=== PATIENT | male | born 1975 | race Caucasian/White ===

== ENCOUNTER 2017-10-27 08:40 | Inpatient (IN) | payer OTHER ==
[2017-10-27] MEDS: fentaNYL PF VIAL 100 MCG/2 ML VIAL IV ×2 (09:15)
[2017-10-27 09:18] LABS: BASO # 0.1 x10^3/uL (0.0-0.2); BASO % 1 % (0-3); EOS % 0 % (0-3); LYMPH # 0.3 x10^3/uL (1.0-4.8); LYMPH % 2 % (24-48); MEAN CORPUSCULAR HEMOGLOBIN 31 pg (25-35); MEAN CORPUSCULAR HGB CONC 34 g/dL (31-37); MEAN CORPUSCULAR VOLUME 90 fL (79-100); MONO # 1.2 x10^3/uL (0.0-1.1); MONO % 6 % (0-9); NEUT # 19.5 x10^3uL (1.8-7.7); NEUT % 92 % (31-73); PLATELET COUNT 410 x10^3/uL (140-400); RED BLOOD COUNT 4.24 x10^6/uL (4.30-5.70); RED CELL DISTRIBUTION WIDTH 13.3 % (11.5-14.5); WHITE BLOOD COUNT 21.2 x10^3/uL (4.0-11.0)
[2017-10-27] MEDS: IV NORMAL SALINE 1000ML BAG 1,000 ML IV ×8 (09:18→14:20)
[2017-10-27] MEDS: ONDANSETRON PF 4 MG/2 ML VIAL. IV ×2 (09:19)
[2017-10-27] MEDS: FAMOTIDINE 20 MG/2 ML VIAL IVP ×4 (09:19→22:20)
[2017-10-27] MEDS: DICYCLOMINE HCL 10 MG CAPSULE PO ×2 (09:19)
[2017-10-27 09:20] LABS: ADD MAN DIFF? YES
[2017-10-27 09:25] LABS: INFLUENZA A PATIENT NEGATIVE (NEGATIVE)
[2017-10-27 09:26] LABS: ANION GAP 7 (6-14); BLOOD UREA NITROGEN 31 mg/dL (8-26); BUN/CREATININE RATIO 17 (6-20); CALCIUM 8.6 mg/dL (8.5-10.1); CARBON DIOXIDE 27 mmol/L (21-32); CHLORIDE 88 mmol/L (98-107); CREATININE 1.8 mg/dL (0.7-1.3); GFR 41.8; GLUCOSE 138 mg/dL (70-99); INFLUENZA B PATIENT NEGATIVE (NEGATIVE); OBC FLU VALID; POTASSIUM 3.4 mmol/L (3.5-5.1); SODIUM 122 mmol/L (136-145)
[2017-10-27 09:32] LABS: ALBUMIN 2.5 g/dL (3.4-5.0); ALBUMIN/GLOBULIN RATIO 0.4 (1.0-1.7); ALK PHOS 229 U/L (46-116); ALT (SGPT) 263 U/L (16-63); AST (SGOT) 375 U/L (15-37); LIPASE 196 U/L (73-393); TOTAL BILIRUBIN 2.3 mg/dL (0.2-1.0); TOTAL PROTEIN 8.1 g/dL (6.4-8.2)
[2017-10-27 10:14] LABS: % BANDS 4 % (0-9); % LYMPHS 2 % (24-48); % MONOS 2 % (0-10); % SEGS 92 % (35-66); PLT ESTIMATE ADEQUATE (ADEQUATE)
[2017-10-27 10:38] LABS: BILIRUBIN,URINE MODERATE (NEG); CLARITY,URINE CLOUDY; COLOR,URINE AMBER; GLUCOSE,URINE NEGATIVE (NEG); NITRITE,URINE NEGATIVE (NEG); PH,URINE 5.5; PROTEIN,URINE 30 mg/dL (NEG-TRACE)
[2017-10-27] MEDS: IOHEXOL 300 MG/ML 100ML VIAL. IV ×2 (10:50)
[2017-10-27 10:54] LABS: RBC,URINE 0 /HPF (0-2)
[2017-10-27 10:55] LABS: BACTERIA,URINE MOD /HPF (0-FEW); SQUAMOUS EPITHELIAL CELL,UR FEW /LPF; WBC,URINE 20-40 /HPF (0-4)
[2017-10-27 10:56] LABS: HYALINE CASTS, URINE OCCASIONAL /HPF
[2017-10-27] MEDS ORDERED: CONTRAST GIVEN MC ×2 (11:00)
[2017-10-27 11:59] LABS: THYROID STIM HORMONE (TSH) 1.917 uIU/mL (0.358-3.74)
[2017-10-27] MEDS ORDERED: ONDANSETRON PF 4 MG/2 ML VIAL. IV ×2 (13:45)
[2017-10-27] MEDS ORDERED: MORPHINE SULFATE 4 MG/ML DISP.SYRIN. IV ×2 (13:45)
[2017-10-27] MEDS: CEFEPIME HCL 2 GM in IV NORMAL SALINE 100ML 100 ML IV ×2 (14:45→22:19)
[2017-10-27] MEDS ORDERED: ONDANSETRON ODT 4 MG TAB.RAPDIS. PO ×2 (17:00)
[2017-10-27 18:41] LABS: ANION GAP 7 (6-14); BLOOD UREA NITROGEN 27 mg/dL (8-26); CALCIUM 8.1 mg/dL (8.5-10.1); CARBON DIOXIDE 27 mmol/L (21-32); CHLORIDE 96 mmol/L (98-107); CREATININE 1.7 mg/dL (0.7-1.3); GFR 44.6; GLUCOSE 157 mg/dL (70-99); POTASSIUM 3.4 mmol/L (3.5-5.1); SODIUM 130 mmol/L (136-145)
[2017-10-27 18:41] LABS: GAMMA GLUTAMYL TRANSPEPTIDASE 135 U/L (10-85)
[2017-10-27] MEDS ORDERED: INFLUENZA VAX SCREEN BY RX. MC ×2 (19:00)
[2017-10-27] MEDS ORDERED: SALIVA STIMULANT AGENT 44ML SPRAY BOTTLE. PO ×2 (19:30)
[2017-10-27] MEDS: FLU VACC QS2017-18 (36MOS+)/PF 0.5 ML SYRINGE. VAX IM ×2 (22:22)
[2017-10-28 04:56] LABS: ADD MAN DIFF? NO
[2017-10-28 05:04] LABS: BASO # 0.1 x10^3/uL (0.0-0.2); BASO % 1 % (0-3); EOS % 0 % (0-3); HEMATOCRIT 33.3 % (39.0-53.0); HEMOGLOBIN 11.2 g/dL (13.0-17.5); LYMPH # 0.6 x10^3/uL (1.0-4.8); LYMPH % 3 % (24-48); MEAN CORPUSCULAR HEMOGLOBIN 31 pg (25-35); MEAN CORPUSCULAR HGB CONC 34 g/dL (31-37); MEAN CORPUSCULAR VOLUME 91 fL (79-100); MONO # 1.7 x10^3/uL (0.0-1.1); MONO % 9 % (0-9); NEUT # 16.6 x10^3uL (1.8-7.7); NEUT % 87 % (31-73); PLATELET COUNT 351 x10^3/uL (140-400); RED BLOOD COUNT 3.66 x10^6/uL (4.30-5.70); RED CELL DISTRIBUTION WIDTH 13.5 % (11.5-14.5)
[2017-10-28 05:36] LABS: INR 1.5 (0.8-1.1); PROTHROMBIN TIME PATIENT 17.5 SEC (11.7-14.0)
[2017-10-28] MEDS: CEFEPIME HCL 2 GM in IV NORMAL SALINE 100ML 100 ML IV ×3 (06:25→21:21)
[2017-10-28 07:28] LABS: ALBUMIN 1.9 g/dL (3.4-5.0); ALBUMIN/GLOBULIN RATIO 0.4 (1.0-1.7); ALK PHOS 183 U/L (46-116); ALT (SGPT) 189 U/L (16-63); ANION GAP 8 (6-14); AST (SGOT) 220 U/L (15-37); BLOOD UREA NITROGEN 20 mg/dL (8-26); BUN/CREATININE RATIO 17 (6-20); CALCIUM 7.9 mg/dL (8.5-10.1); CARBON DIOXIDE 25 mmol/L (21-32); CHLORIDE 100 mmol/L (98-107); CREATININE 1.2 mg/dL (0.7-1.3); GFR 66.7; GLUCOSE 95 mg/dL (70-99); POTASSIUM 3.5 mmol/L (3.5-5.1); SODIUM 133 mmol/L (136-145); TOTAL BILIRUBIN 1.2 mg/dL (0.2-1.0); TOTAL PROTEIN 6.5 g/dL (6.4-8.2)
[2017-10-28] MEDS: FAMOTIDINE 20 MG/2 ML VIAL IVP ×4 (09:47→20:43)
[2017-10-28] MEDS: POTASSIUM CHLORIDE 20 MEQ TABLET.ER. PO ×2 (09:47)
[2017-10-28 12:15] LABS: HCV ANTIBODY 0.1 s/co ratio (0.0-0.9); HEP A IGM ABDY Negative (Negative); HEP B SURFACE AG Negative (Negative)
[2017-10-28] MEDS ORDERED: LOPERAMIDE 2 MG CAPSULE PO ×2 (13:00)
[2017-10-28] MEDS: POTASSIUM CL 40MEQ D5-0.45NACL 1,000 ML IV ×4 (13:00→20:44)
[2017-10-28] MEDS: IV NORMAL SALINE 1000ML BAG 1,000 ML IV ×2 (13:38)
[2017-10-28 15:59] LABS: SEDIMENTATION RATE 40 (0-15)
[2017-10-28] MEDS: MESALAMINE 1.2 GM TABLET.DR PO ×2 (20:43)
[2017-10-28 23:11] LABS: C DIFF BY PCR Negative (Negative)
[2017-10-29 04:34] LABS: ADD MAN DIFF? NO
[2017-10-29 04:41] LABS: BASO % 0 % (0-3); EOS # 0.1 x10^3/uL (0.0-0.7); EOS % 1 % (0-3); HEMATOCRIT 31.2 % (39.0-53.0); HEMOGLOBIN 10.5 g/dL (13.0-17.5); LYMPH # 0.8 x10^3/uL (1.0-4.8); LYMPH % 4 % (24-48); MEAN CORPUSCULAR HEMOGLOBIN 31 pg (25-35); MEAN CORPUSCULAR HGB CONC 34 g/dL (31-37); MEAN CORPUSCULAR VOLUME 91 fL (79-100); MONO # 1.6 x10^3/uL (0.0-1.1); MONO % 9 % (0-9); NEUT % 86 % (31-73); PLATELET COUNT 367 x10^3/uL (140-400); RED BLOOD COUNT 3.44 x10^6/uL (4.30-5.70); RED CELL DISTRIBUTION WIDTH 13.6 % (11.5-14.5); WHITE BLOOD COUNT 17.5 x10^3/uL (4.0-11.0)
[2017-10-29 05:05] LABS: ANION GAP 7 (6-14); BLOOD UREA NITROGEN 12 mg/dL (8-26); CALCIUM 7.6 mg/dL (8.5-10.1); CARBON DIOXIDE 23 mmol/L (21-32); CHLORIDE 98 mmol/L (98-107); CREATININE 1.2 mg/dL (0.7-1.3); GFR 66.7; GLUCOSE 345 mg/dL (70-99); SODIUM 128 mmol/L (136-145)
[2017-10-29 05:07] LABS: POTASSIUM 6.1 mmol/L (3.5-5.1)
[2017-10-29] MEDS ORDERED: DEXTROSE 50% 25 GM / 50ML DISP.SYRIN. IV ×2 (06:00)
[2017-10-29] MEDS: DEXTROSE 5% IV (06:31)
[2017-10-29] MEDS: CALCIUM GLUCONATE IV (06:31)
[2017-10-29] MEDS: CEFEPIME HCL 2 GM in IV NORMAL SALINE 100ML 100 ML IV ×3 (06:31→21:44)
[2017-10-29] MEDS: INSULIN ASPART 300 UNITS/3 ML INSULN.PEN SQ ×2 (07:54)
[2017-10-29 07:56] LABS: POC GLUCOSE 113 mg/dL (70-99)
[2017-10-29] MEDS: FAMOTIDINE 20 MG/2 ML VIAL IVP ×2 (10:03)
[2017-10-29] MEDS: MESALAMINE 1.2 GM TABLET.DR PO ×2 (10:03)
[2017-10-29] MEDS: POTASSIUM CHLORIDE 20 MEQ TABLET.ER. PO ×2 (10:03)
[2017-10-29 11:15] LABS: POTASSIUM 3.5 mmol/L (3.5-5.1)
[2017-10-29 11:20] LABS: CEA 0.2 ng/mL (0.0-4.7)
[2017-10-29 11:20] LABS: CA 19-9 2 U/mL (0-35)
[2017-10-29 14:27] LABS: URINE OSMOLALITY 290 mOsmol/kg (.)
[2017-10-29] MEDS: IV NORMAL SALINE 1000ML BAG 1,000 ML IV ×4 (17:26→21:44)
[2017-10-30 06:07] LABS: ANION GAP 10 (6-14); BLOOD UREA NITROGEN 10 mg/dL (8-26); CALCIUM 8.6 mg/dL (8.5-10.1); CARBON DIOXIDE 25 mmol/L (21-32); CHLORIDE 100 mmol/L (98-107); CREATININE 1.1 mg/dL (0.7-1.3); GFR 73.8; GLUCOSE 92 mg/dL (70-99); POTASSIUM 3.7 mmol/L (3.5-5.1); SODIUM 135 mmol/L (136-145)
[2017-10-30] MEDS: CEFEPIME HCL 2 GM in IV NORMAL SALINE 100ML 100 ML IV ×3 (06:09→23:42)
[2017-10-30] MEDS: IV NORMAL SALINE 1000ML BAG 1,000 ML IV ×4 (06:10→18:03)
[2017-10-30] MEDS ORDERED: ONDANSETRON PF 4 MG/2 ML VIAL. IV ×2 (07:00)
[2017-10-30] MEDS ORDERED: PROCHLORPERAZINE 10 MG/2 ML VIAL. IV ×2 (07:00)
[2017-10-30] MEDS ORDERED: LIDOCAINE 1% PF 2 ML VIAL. ID ×2 (07:00)
[2017-10-30] MEDS ORDERED: MORPHINE SULFATE 2 MG/ML DISP.SYRIN. IV ×2 (07:00)
[2017-10-30] MEDS ORDERED: fentaNYL PF VIAL 100 MCG/2 ML VIAL IV ×4 (07:00)
[2017-10-30] MEDS: MESALAMINE 1.2 GM TABLET.DR PO ×2 (08:43)
[2017-10-30] MEDS ORDERED: IOHEXOL 300 MG/ML 100ML VIAL. ×2 (09:06)
[2017-10-30] MEDS ORDERED: LIDOCAINE 2% 100 MG/5 ML SYRINGE. ×2 (12:00)
[2017-10-30] MEDS ORDERED: ROCURONIUM 50 MG/5 ML VIAL. ×2 (12:00)
[2017-10-30] MEDS ORDERED: GLYCOPYRROLATE 1 MG/5 ML VIAL. ×2 (12:00)
[2017-10-30] MEDS ORDERED: PROPOFOL 10 MG/ML (20ML) VIAL. IV ×2 (12:00)
[2017-10-30] MEDS ORDERED: NEOSTIGMINE METHYLSULFATE 5 MG/5 ML SYRINGE. ×2 (12:00)
[2017-10-30] MEDS: IV RINGERS,LACTATED 1000ML 1,000 ML IV ×2 (12:46)
[2017-10-30] MEDS: IOHEXOL 350 MG/ML 50 ML VIAL. IV ×2 (13:30)
[2017-10-30] MEDS: URSODIOL 300 MG CAPSULE. PO ×4 (18:02→22:37)
[2017-10-30] MEDS: LACTOBACILLUS RHAMNOSUS GG 1 CAPSULE. PO ×2 (22:37)
[2017-10-30] MEDS: MESALAMINE 1,000 MG SUPP.RECT PR ×2 (23:41)
[2017-10-31] MEDS: IV NORMAL SALINE 1000ML BAG 1,000 ML IV ×4 (04:03→14:18)
[2017-10-31] MEDS: CEFEPIME HCL 2 GM in IV NORMAL SALINE 100ML 100 ML IV ×3 (05:22→21:25)
[2017-10-31 08:25] LABS: CRYPTOSPORIDIUM EIA Negative (Negative)
[2017-10-31 08:35] LABS: % SAT IRON 29 % (15-34); IRON,SERUM 47 ug/dL (65-175)
[2017-10-31] MEDS: LACTOBACILLUS RHAMNOSUS GG 1 CAPSULE. PO ×4 (09:16→21:25)
[2017-10-31] MEDS: MESALAMINE 1.2 GM TABLET.DR PO ×2 (09:16)
[2017-10-31] MEDS: URSODIOL 300 MG CAPSULE. PO ×8 (09:16→21:25)
[2017-10-31] MEDS: MESALAMINE 1,000 MG SUPP.RECT PR ×2 (21:00)
[2017-11-01] MEDS: IV NORMAL SALINE 1000ML BAG 1,000 ML IV ×4 (04:55→08:15)
[2017-11-01 04:58] LABS: BASO # 0.1 x10^3/uL (0.0-0.2); BASO % 0 % (0-3); EOS # 0.2 x10^3/uL (0.0-0.7); EOS % 2 % (0-3); HEMATOCRIT 35.6 % (39.0-53.0); LYMPH # 1.3 x10^3/uL (1.0-4.8); LYMPH % 8 % (24-48); MEAN CORPUSCULAR HEMOGLOBIN 31 pg (25-35); MEAN CORPUSCULAR HGB CONC 34 g/dL (31-37); MEAN CORPUSCULAR VOLUME 91 fL (79-100); MONO # 1.4 x10^3/uL (0.0-1.1); MONO % 8 % (0-9); NEUT # 13.2 x10^3uL (1.8-7.7); NEUT % 82 % (31-73); PLATELET COUNT 582 x10^3/uL (140-400); RED BLOOD COUNT 3.93 x10^6/uL (4.30-5.70); RED CELL DISTRIBUTION WIDTH 13.8 % (11.5-14.5); WHITE BLOOD COUNT 16.2 x10^3/uL (4.0-11.0)
[2017-11-01] MEDS: CEFEPIME HCL 2 GM in IV NORMAL SALINE 100ML 100 ML IV ×2 (05:05→14:00)
[2017-11-01 05:23] LABS: ANION GAP 9 (6-14); BLOOD UREA NITROGEN 11 mg/dL (8-26); CALCIUM 8.3 mg/dL (8.5-10.1); CARBON DIOXIDE 26 mmol/L (21-32); CHLORIDE 102 mmol/L (98-107); CREATININE 0.9 mg/dL (0.7-1.3); GLUCOSE 95 mg/dL (70-99); POTASSIUM 3.8 mmol/L (3.5-5.1); SODIUM 137 mmol/L (136-145)
[2017-11-01 05:26] LABS: ADD MAN DIFF? YES
[2017-11-01] MEDS: URSODIOL 300 MG CAPSULE. PO ×4 (08:53→13:26)
[2017-11-01] MEDS: LACTOBACILLUS RHAMNOSUS GG 1 CAPSULE. PO ×2 (08:53)
[2017-11-01] MEDS: MESALAMINE 1.2 GM TABLET.DR PO ×2 (08:53)
[2017-11-01] MEDS: COLESTIPOL HCL 1 GM TABLET PO ×2 (10:45)
[2017-11-01] MEDS: cloNIDine HCL 0.1 MG TABLET PO ×2 (11:12)
[2017-11-02 11:15] LABS: MITOCHONDRIAL ABDY 4.3 Units (0.0-20.0)
[2017-11-04 10:23] LABS: ANA INTERP Negative (.)
== END 2017-11-01 15:30 | disposition home or self-care (01) | DRG 682 ==
LOC: ER 08:40 → 6 SOUTH 12:44
PROC: 0FB Hepatobiliary System and Pancreas, Excision (ICD-10-PCS; principal; 2017-10-30 12:58)
DX: N17.0 Acute kidney failure with tubular necrosis (principal); E43 Unspecified severe protein-calorie malnutrition; K83.0 Cholangitis; E87.2 Acidosis; E87.1 Hypo-osmolality and hyponatremia; R65.10 Systemic inflammatory response syndrome (SIRS) of non-infectious origin without acute organ dysfunction; K51.90 Ulcerative colitis, unspecified, without complications; E87.5 Hyperkalemia; E86.0 Dehydration; E87.6 Hypokalemia; G47.00 Insomnia, unspecified; Z68.30 Body mass index [BMI] 30.0-30.9, adult
CPT/HCPCS: 36415; 74177; 74181; 74328; 76700; 80048; 80053; 80074; 81001; 82378; 82533; 82570; 82962; 82977; 83520; 83540; 83550; 83690; 83935; 84132; 84300; 84443; 85007; 85025; 85610; 85651; 86038; 86301; 87045; 87205; 87324; 87328; 87804; 87804-59; 88112; 90686; 93976; 96361; 96374; 96375; 99285; 99285-25; C1757; J0610; J0692; J1815; J2405; J2704; J2710; J3490; J7030; J7042; J7120; Q9967; S0028

== ENCOUNTER → 2017-11-24 | Day surgery (SDC) | payer OTHER ==
[~2017-11-24] MED LIST: HYDROmorphone 2 MG/ML VIAL IV; LIDOCAINE 1% PF 2 ML VIAL.; LIDOCAINE 1% PF 2 ML VIAL. ID; MORPHINE SULFATE 2 MG/ML DISP.SYRIN. IV; ONDANSETRON PF 4 MG/2 ML VIAL. IV; PROCHLORPERAZINE 10 MG/2 ML VIAL. IV; PROPOFOL 40 ML IV; fentaNYL PF VIAL 100 MCG/2 ML VIAL IV
[2017-11-24] MEDS: IV RINGERS,LACTATED 1000ML 1,000 ML IV (12:08)
== END | disposition home or self-care (01) ==
LOC: ENDOS 11:24
DX: K51.90 Ulcerative colitis, unspecified, without complications (principal); I10 Essential (primary) hypertension; I25.10 Atherosclerotic heart disease of native coronary artery without angina pectoris
CPT/HCPCS: 45380; 88305; J2704

== ENCOUNTER 2021-05-13 15:43 | Emergency (ER) | payer OTHER ==
[~2021-05-13] VITALS: Ht 175.3 cm; Wt 86.0 kg
[~2021-05-13 15:43] MED LIST changes: +COLE1TAB PO; -HYDROmorphone 2 MG/ML VIAL IV; +LIALDA1.2 GM PO; -LIDOCAINE 1% PF 2 ML VIAL.; -LIDOCAINE 1% PF 2 ML VIAL. ID; +METR500T PO; -MORPHINE SULFATE 2 MG/ML DISP.SYRIN. IV; +ONDA4TAB7 PO; -ONDANSETRON PF 4 MG/2 ML VIAL. IV; -PROCHLORPERAZINE 10 MG/2 ML VIAL. IV; -PROPOFOL 40 ML IV; +URSO300C13 PO; -fentaNYL PF VIAL 100 MCG/2 ML VIAL IV
[2021-05-13 15:45] VITALS: BP 143/86
--- NOTE | 2021-05-13 16:07 | PHYS DOC ---
Past Medical History Past Medical History: Other Additional Past Medical Histor: ulcerative cholitis Past Surgical History: Other Additional Past Surgical Histo: colonoscopy Smoking Status: Never Smoker Alcohol Use: Rarely Drug Use: None General Adult EDM: Chief Complaint: MULTIPLE COMPLAINTS HPI: HPI: Patient is a 45 year old male with a history of ulcerative colitis who presents to the ED today to be evaluated for body aches after receiving Pfizer first dose Covid vaccine 8 days ago. He states the body aches began 3 days later. Denies any fever, denies any cough or congestion. Denies any chest pain or shortness of breath. Review of Systems: Review of Systems: Constitutional: Reports body aches. Denies fever or chills. [] Eyes: Denies change in visual acuity. [] HENT: Denies nasal congestion or sore throat. [] Respiratory: Denies cough or shortness of breath. [] Cardiovascular: Denies chest pain or edema. [] GI: Denies abdominal pain, nausea, vomiting, bloody stools or diarrhea. [] : Denies dysuria. [] Musculoskeletal: Denies back pain or joint pain. [] Integument: Denies rash. [] Neurologic: Denies headache, focal weakness or sensory changes. [] Psychiatric: Denies depression or anxiety. [] Heart Score: C/O Chest Pain: N/A Risk Factors: Risk Factors: DM, Current or recent (<one month) smoker, HTN, HLP, family history of CAD, obesity. Risk Scores: Score 0 - 3: 2.5% MACE over next 6 weeks - Discharge Home Score 4 - 6: 20.3% MACE over next 6 weeks - Admit for Clinical Observation Score 7 - 10: 72.7% MACE over next 6 weeks - Early Invasive Strategies Allergies: Allergies: Allergies Coded Allergies Type Severity Reaction Last Updated Verified No Known Drug Allergies 11/24/17 No Physical Exam: PE: Constitutional: Well developed, well nourished, no acute distress, non-toxic appearance. [] HENT: Normocephalic, atraumatic, bilateral external ears normal, oropharynx moist, no oral exudates, nose normal. [] Eyes: PERRLA, EOMI, conjunctiva normal, no discharge. [] Neck: Normal range of motion, no tenderness, supple, no stridor. [] Cardiovascular:Heart rate regular rhythm, no murmur [] Lungs & Thorax: Bilateral breath sounds clear to auscultation [] Abdomen: Bowel sounds normal, soft, no tenderness, no masses, no pulsatile masses. [] Skin: Warm, dry, no erythema, no rash. [] Back: No tenderness, no CVA tenderness. [] Extremities: No tenderness, no cyanosis, no clubbing, ROM intact, no edema. [] Neurologic: Alert and oriented X 3, normal motor function, normal sensory function, no focal deficits noted. [] Psychologic: Affect normal, judgement normal, mood normal. [] EKG: EKG: [] Radiology/Procedures: Radiology/Procedures: [] Course & Med Decision Making: Course & Med Decision Making Pertinent Labs and Imaging studies reviewed. (See chart for details) This a 45-year-old male patient presenting to the ED today with body aches after receiving Pfizer first dose Covid vaccine 8 days ago. Body aches began 5 days ago. Patient is afebrile. Has no other symptoms. Patient was reassured. Supportive care measures recommended. Provided return precautions and discharged to home. Eduardo Disclaimer: Eduardo Disclaimer: This electronic medical record was generated, in whole or in part, using a voice recognition dictation system. Departure Departure Impression: Primary Impression: Body aches after vaccination Disposition: 01 HOME / SELF CARE / HOMELESS Condition: STABLE Referrals: NON,STAFF (PCP) follow up with your doctor in 1-2 weeks Patient Instructions: Viral Infections, [id number] Additional Instructions: We would like to thank you for receiving a Covid vaccine. The symptoms you have I expected with Covid vaccine. We encourage you to rest, push fluids, maintain good hand hygiene. Take Tylenol or Motrin for pain or fever. Push fluids especially Gatorade and clear liquids. These symptoms will subside/go away in a couple days. Be patient with them. MAITE HATCH APRN May 13, 2021 16:07
== END 2021-05-13 16:18 | disposition home or self-care (01) ==
LOC: ER 15:43
DX: M79.10 Myalgia, unspecified site (principal)
CPT/HCPCS: 99282